=== PATIENT | female | born 1965 | race Caucasian/White ===

== ENCOUNTER → 2020-10-08 13:51 | Outpatient (CLI) | payer OTHER, SELFPAY ==
--- NOTE | ~2020-10-08 | MM_ITS ---
EXAMINATION: MM screening [facility] BI w kenny HISTORY: Screening mammogram TECHNIQUE: Craniocaudal and mediolateral oblique 3-D tomosynthesis images were obtained and synthetic 2-D images were generated. CAD analysis was submitted and interpreted. COMPARISON: 04/29/2019, 04/11/2018, 10/09/2016 BREAST PARENCHYMAL COMPOSITION: There are scattered areas of fibroglandular density. FINDINGS: RIGHT BREAST: There is no evidence of suspicious mass, calcification, or architectural distortion to suggest malignancy. There has been no significant interval change. LEFT BREAST: A mass is present in the middle third of the outer breast 6 cm from the nipple. No suspi cious calcification is identified. IMPRESSION: 1. Left breast mass. 2. Additional mammographic views and possible breast ultrasound are recommended. BI-RADS Category 0: Incomplete: Needs additional imaging evaluation. Reviewed, dictated and finalized at location A. IMPRESSION: 1. Left breast mass. 2. Additional mammographic views and possible breast ultrasound are recommended . BI-RADS Category 0: Incomplete: Needs additional imaging evaluation.
== END ==
PROVIDERS: Visit Provider Advanced Practice Midwife
DX: Z12.31 Encounter for screening mammogram for malignant neoplasm of breast (principal); R92.8 Other abnormal and inconclusive findings on diagnostic imaging of breast
CPT/HCPCS: 77063; 77067

== ENCOUNTER → 2020-11-09 08:42 | Outpatient (CLI) | payer OTHER, SELFPAY ==
--- NOTE | ~2020-11-09 | MMUS_ITS ---
EXAMINATION: MM diagnostic [facility] LT w kenny, US breast LT limited HISTORY: Left breast mass in middle third of outer breast 6 cm from nipple reported on 10/08/2020 scre ening mammogram TECHNIQUE: Additional 3-D tomosynthesis images of the left breast were performed and synthetic 2-D im ages were generated. CAD analysis was submitted and interpreted. High resolution upper outer and lowe r-outer left breast ultrasound was performed. COMPARISON: 10/08/2020, 04/29/2019 bilateral digital screening mammogram BREAST PARENCHYMAL COMPOSITION: There are scattered areas of fibroglandular density. FINDINGS: MAMMOGRAPHIC FINDINGS: There is an approximately 6 x 9 mm circumscribed opacity in the mid to lower outer left breast, [place] 04/29/2019. There are scattered smaller left breast opacities. ULTRASOUND: 1:00 6 cm from nipple: Irregular antiparallel 2.4 x 3.5 mm antiparallel hypoechoic lesion; ultrasound -guided biopsy is recommended 1:00 subareolar 2.7 x 2.2 x 3.2 mm cyst 2:00 7.5 cm from nipple: Irregular approximately 2.8 x 3.6 mm antiparallel hypoechoic lesion; ultraso und-guided biopsy is recommended. 2:00 6 cm from nipple: 4.7 x 11 x 7 mm simple cyst 2:00 6 cm from nipple: 1.7 x 3 x 3.4 mm cyst 3:00 7 cm from nipple: 3.6 x 5.2 x 6.1 mm cyst 3:00 9 cm from nipple: 3.3 x 5.3 x 4.5 mm cyst IMPRESSION: 1. Suspicious small irregular antiparallel lesions at 1:00 6 cm from nipple and 2:00 7.5 cm from nipp le 2. Ultrasound-guided biopsy of these 2 areas is recommended BI-RADS category 4, suspicious findings. Dr. Mcmullen telephoned the mammography and ultrasound report findings and ultrasound guided biopsy recom mendations of 1:00 and 2:00 lesions on 11/09/2020 at 1008 hours to Ila Firer Kiln Reviewed, dictated and finalized at location A. IMPRESSION: 1. Suspicious small irregular antiparallel lesions at 1:00 6 cm from nipple and 2:00 7.5 cm from nipple 2. Ultrasound-guided biopsy of these 2 areas is recommended BI-RADS category 4, suspicious findings. Dr. Mcmullen telephoned the mammography and ultrasound report findings and ultrasou nd guided biopsy recommendations of 1:00 and 2:00 lesions on 11/09/2020 at 1008 hours to Melquiades Thorpe
== END ==
PROVIDERS: Visit Provider Obstetrics & Gynecology
DX: R92.8 Other abnormal and inconclusive findings on diagnostic imaging of breast (principal)
CPT/HCPCS: 76642; 77061; 77065; G0279

== ENCOUNTER → 2022-01-02 12:06 | Outpatient (CLI) | payer OTHER, SELFPAY ==
--- NOTE | ~2022-01-02 | MM_ITS ---
EXAMINATION: MM screening [facility] BI w kenny HISTORY: Screening mammogram TECHNIQUE: Craniocaudal and mediolateral oblique 3-D tomosynthesis images were obtained and synthetic 2-D images were generated. CAD analysis was submitted and interpreted. COMPARISON: 11/09/2020 diagnostic left mammogram and limited left breast ultrasound BREAST PARENCHYMAL COMPOSITION: The breasts are almost entirely fatty. FINDINGS: Status post bilateral breast reduction surgery. There is no evidence of suspicious mass, ca lcification, or architectural distortion to suggest malignancy in either breast. There has been no riojas spicious interval change. IMPRESSION: 1. No mammographic evidence of malignancy. 2. Recommend routine screening mammography in one year. BI-RADS Category 2: Benign finding(s). Reviewed, dictated and finalized at location A.
== END ==
PROVIDERS: PCP Obstetrics & Gynecology; Visit Provider Obstetrics & Gynecology
DX: Z12.31 Encounter for screening mammogram for malignant neoplasm of breast (principal)
CPT/HCPCS: 77063; 77067

== ENCOUNTER → 2023-06-13 15:09 | Outpatient (CLI) | payer OTHER, SELFPAY ==
--- NOTE | ~2023-06-13 | MM_ITS ---
EXAMINATION: MM screening [facility] BI w kenny HISTORY: Screening mammogram TECHNIQUE: Craniocaudal and mediolateral oblique 3-D tomosynthesis images were obtained and synthetic 2-D images were generated. CAD analysis was submitted and interpreted. COMPARISON: 01/02/2022 bilateral screening mammogram 11/09/2020 diagnostic left mammogram and limited left breast ultrasound BREAST PARENCHYMAL COMPOSITION: The breasts are almost entirely fatty. FINDINGS: History of bilateral reduction mammoplasty. Stable in lower mid left breast. There is no ev idence of suspicious mass, calcification, or architectural distortion to suggest malignancy in either breast. There has been no suspicious interval change. IMPRESSION: 1. No mammographic evidence of malignancy. 2. Recommend routine screening mammography in one year. BI-RADS Category 1: Negative Reviewed, dictated and finalized at location A. OPERATOR
== END ==
PROVIDERS: PCP Nurse Practitioner Obstetrics & Gynecology; Visit Provider Nurse Practitioner Obstetrics & Gynecology
DX: Z12.31 Encounter for screening mammogram for malignant neoplasm of breast (principal)
CPT/HCPCS: 77063; 77067

== ENCOUNTER 2024-11-07 13:53 | Outpatient (CLI) | payer OTHER, SELFPAY ==
--- NOTE | ~2024-11-07 | MM_ITS ---
EXAMINATION: MM screening [facility] BI w kenny HISTORY: Screening TECHNIQUE: Craniocaudal and mediolateral oblique 3-D tomosynthesis images were obtained and synthetic 2-D images were generated. CAD analysis was submitted and interpreted. COMPARISON: Comparison to multiple prior studies sequentially, with oldest reviewed study dated 04/11. BREAST PARENCHYMAL COMPOSITION: Not dense: There are scattered areas of fibroglandular density. FINDINGS: There are bilateral symmetric changes consistent with prior breast reduction surgery. There is no evidence of suspicious mass, calcification, or architectural distortion to suggest malignancy in either breast. There has been no suspicious interval change. IMPRESSION: 1. No mammographic evidence of malignancy. 2. Recommend routine screening mammography in one year. BI-RADS Category 1: Negative Reviewed, dictated and finalized at location A.
== END 2024-11-07 13:54 | disposition home or self-care (01) ==
LOC: MICIMG 13:53
PROVIDERS: Visit Provider Obstetrics & Gynecology
DX: Z12.31 Encounter for screening mammogram for malignant neoplasm of breast (principal)
CPT/HCPCS: 77063; 77067